=== PATIENT | female | born 1955 | race Caucasian/White ===

== ENCOUNTER 2021-12-08 15:00 | Emergency (ER) | payer MEDICARE, OTHER ==
[2021-12-08 17:49] LABS: HEMOGLOBIN 14.6 gm/dl (12.3-15.3); RED BLOOD COUNT 4.46 M/UL (4.00-5.10); WHITE BLOOD COUNT 10.1 K/UL (4.5-11.0)
[2021-12-08 18:20] LABS: BUN/CREATININE RATIO 20 (0-10)
[2021-12-08] MEDS ORDERED: ONDANSETRON ODT4 MG SL (21:36)
== END 2021-12-08 21:40 | disposition home or self-care (01) ==
LOC: ER1 15:00
PROVIDERS: Physician Assistant
DX: U07.1 COVID-19 (principal); J40 Bronchitis, not specified as acute or chronic; E87.6 Hypokalemia; I10 Essential (primary) hypertension; Z88.6 Allergy status to analgesic agent; Z88.5 Allergy status to narcotic agent; F17.210 Nicotine dependence, cigarettes, uncomplicated
CPT/HCPCS: 70450; 71045; 80053; 81001; 82550; 82553; 83735; 83874; 84484; 85025; 87086; 93005; 99285; U0002

== ENCOUNTER → 2021-12-12 | Outpatient (CLI) | payer MEDICARE, OTHER ==
[~2021-12-12] VITALS: Ht 160 cm; Wt 68.0 kg
[~2021-12-12] MED LIST: ONDANSETRON ODT4 MG SL
== END ==
LOC: EROP 16:30
DX: U07.1 COVID-19 (principal); Z23 Encounter for immunization; J45.909 Unspecified asthma, uncomplicated; I10 Essential (primary) hypertension
CPT/HCPCS: M0247; Q0247